=== PATIENT | female | born 1945 | race Two or more races ===

== ENCOUNTER 2018-01-20 12:17 | Day surgery (SDC) | payer MEDICARE ==
[2018-01-20 13:08] VITALS: BP 129/77; PULSE 82; RESP 16; TEMP 98.4; O2SAT 98
--- NOTE | 2018-01-20 13:55 | PD.RAD ---
Post US Procedure Prog Note Pre Procedure Diagnosis: (1) Thyroid nodule Post Procedure Diagnosis: (1) Thyroid nodule Procedure Date: Jan 20, 2018 Supervising Radiologist: Cayetano Menon Proceduralist/Assist: Marcia Carpio RDMS Anesthesia: Local Plan of Activity Patient to Unit: ROPU Patient Condition: Good See PACS Report for procedural detail/treatment Biopsy Imaging Guidance: Ultrasound Side: Right Biopsy Procedure: Thyroid Site: right mid thyroid calcified nodule. Specimen: Fine Needle Aspirate Additional Detail: 4 FNAs obtained. Plan to ROPU then discharge. Cayetano Menon MD Jan 20, 2018 13:55
[2018-01-20 14:10] VITALS: BP 148/86; PULSE 81; RESP 18; TEMP 98.1; O2SAT 95
[2018-01-20] MEDS ORDERED: LIDOCAINE HCL 1% 20 ML VIAL ONE (14:14)
[2018-01-20 14:25] VITALS: BP 136/83; PULSE 82; RESP 18; O2SAT 96
--- NOTE | 2018-01-20 16:39 | RADRPT ---
EXAM DATE: 01/20/2018 2:09 PM EDT AGE/SEX: 72 years / Female INDICATIONS: Right thyroid nodule. CLINICAL DATA: This is the patient's initial encounter. Patient reports that signs and symptoms have been present for 2 weeks and indicates a pain score of 0/10. MEDICAL/SURGICAL HISTORY: Diabetes. Osteoarthritis. Asthma. Polio 1948, fibromyalgia, restle ss leg syndrome, hypothyroidism. . Right oophorectomy. COMPARISON: [facility], US THYROID, 12/26/2017. . ORGAN: Right thyroid. SPECIMEN(S): Four fine needle aspirate(s) submitted for pathologic evaluation. DEVICE(S): 22 gauge needle Post procedure scanning reveals no hematoma or other complication. The possibility does exist that the tissue obtained will be non-diagnostic. If the sample is non-diag nostic, a repeat biopsy or surgical biopsy may need to be performed. TECHNIQUE: 1. Ultrasound guidance for needle biopsy. 2. Needle biopsy. 3. 4. . . The risks, benefits and alternatives to the procedure were explained and verbal and written consent w as obtained. The site was prepped in sterile fashion. Full sterile technique was used, including ca p, mask, sterile gloves and gown and a large sterile sheet. Hand hygiene and 2% chlorhexidine and/or betadine/alcohol prep was utilized per protocol for cutaneous antisepsis. The skin and subcutaneous tissues were infiltrated with local anesthetic solution. Sterile gel and sterile probe cover were u tilized for ultrasound guidance. With the patient on the ultrasound table, images were obtained. There is a rim calcified hypoechoic nodule in the mid gland measuring 1.6 x 1.5 x 1.3 cm. An adjacent mildly hypoechoic solid nodule in t he lower pole also contains some internal calcification and measures 1.3 x 1.4 x 1.0 cm. The larger r im calcified nodule in the mid gland was targeted for biopsy. A needle was advanced into the identified target and 4 FNA specimens as above obtained and submitted for pathologic evaluation. The patient tolerated the procedure well and left the ultrasound suite in stable condition. CONCLUSION: Uncomplicated right thyroid nodule biopsy, as above. If the biopsy results return as benign, the lowe r pole right thyroid nodule should undergo six-month follow-up imaging. Electronically signed by: Cayetano Menon MD 01/20/2018 4:37 PM EDT
== END 2018-01-20 14:41 | disposition home or self-care (01) ==
LOC: HRAD 12:17 → HRIP 12:18 → HRAD 14:41
PROVIDERS: ATTEND Radiology Diagnostic Ultrasound
DX: E04.1 Nontoxic single thyroid nodule (principal); E11.9 Type 2 diabetes mellitus without complications; J45.909 Unspecified asthma, uncomplicated; M79.7 Fibromyalgia; G25.81 Restless legs syndrome; E03.9 Hypothyroidism, unspecified; M19.90 Unspecified osteoarthritis, unspecified site; Z86.12 Personal history of poliomyelitis
CPT/HCPCS: 10022; 76942; 88172; 88173